=== PATIENT | female | born 1960 | race African-American/Black ===

== ENCOUNTER 2022-04-29 07:44 | Emergency (ER) | payer MEDICAID, OTHER ==
[~2022-04-29] VITALS: Ht 162.6 cm; Wt 67.0 kg
[~2022-04-29 07:44] MED LIST: ACET-3161 GT; LISI-186 PO; MOTRIN; NEOM10DR11 OT
[2022-04-29 08:00] VITALS: BP 191/67
[2022-04-29] MEDS ORDERED: MECLIZINE 25MG TABLET PO ONE (10:30)
[2022-04-29 10:57] LABS: BASOPHILS % 0.8 % (0.0-2.0); EOSINOPHILS % 0.7 % (0.0-5.0); HEMATOCRIT. 37.5 % (36.0-48.0); HEMOGLOBIN. 12.1 g/dL (12.0-16.0); MEAN CORPUSCULAR HEMOGLOBIN 26.9 pg (28.0-32.0); MEAN CORPUSCULAR VOLUME 83.3 fL (81.0-99.0); MONOCYTES % 5.2 % (2.0-8.0); NEUTROPHILS % 60.3 % (40.0-76.0); PLATELET 366 x1000/uL (130-400); RED BLOOD CELL COUNT 4.49 mill/uL (4.2-5.4); RED CELL DISTRIBUTION WIDTH 14.5 % (11.6-14.6)
[2022-04-29 11:00] LABS: CHLORIDE 111 mEq/L (98-107)
[2022-04-29] MEDS ORDERED: MECL-159 MT (12:12)
== END 2022-04-29 12:46 | disposition home or self-care (01) ==
LOC: ER 08:39
DX: H81.13 Benign paroxysmal vertigo, bilateral (principal); R94.31 Abnormal electrocardiogram [ECG] [EKG]
CPT/HCPCS: 36415; 70450; 71045; 80053; 84484; 85025; 93005; 99285; J8597

== ENCOUNTER 2023-09-29 19:19 | Emergency (ER) | payer OTHER ==
[~2023-09-29] VITALS: Ht 170.2 cm; Wt 73.0 kg
[~2023-09-29 19:19] MED LIST changes: +MECL-299 MT
[2023-09-29 19:27] VITALS: O2SAT 100
[2023-09-29 20:17] LABS: BASOPHILS % 1.1 % (0.0-2.0); EOSINOPHILS % 1.3 % (0.0-5.0); HEMOGLOBIN. 11.3 g/dL (12.0-16.0); MEAN CORPUSCULAR HEMOGLOBIN 27.5 pg (28.0-32.0); MEAN CORPUSCULAR HGB CONC 32.4 g/dL (31.0-37.0); MEAN CORPUSCULAR VOLUME 84.9 fL (81.0-99.0); MONOCYTES % 6.1 % (2.0-8.0); NEUTROPHILS % 66.5 % (40.0-76.0); PLATELET 284 x1000/uL (130-400); RED BLOOD CELL COUNT 4.13 mill/uL (4.2-5.4); RED CELL DISTRIBUTION WIDTH 14.4 % (11.6-14.6)
[2023-09-29 20:19] LABS: DIFFERENTIAL COMMENT 1
[2023-09-29 20:20] LABS: ADD RBC MORPHOLOGY YES
[2023-09-29 20:24] LABS: CHLORIDE 108 mEq/L (98-107); POTASSIUM 3.5 mEq/L (3.5-5.1); SODIUM 138 mEq/L (136-145)
[2023-09-29 20:25] LABS: CARBON DIOXIDE 23 mEq/L (21-32)
[2023-09-29 20:26] LABS: CALCIUM 9.8 mg/dL (8.7-10.4)
[2023-09-29 20:31] LABS: CREATININE 0.8 mg/dL (0.6-1.0); GLUCOSE 125 mg/dL (70-105); UREA NITROGEN BLOOD 14 mg/dL (9-23)
[2023-09-29 20:33] LABS: TROPONIN I HIGH SENSITIVITY 23 ng/L (3.0-34)
[2023-09-29 20:34] LABS: PLATELET ESTIMATE NORMAL
[2023-09-29 22:32] VITALS: BP 139/70; PULSE 70; RESP 12; TEMP 97.4
== END 2023-09-29 22:33 | disposition home or self-care (01) ==
LOC: ER 19:19
DX: R00.2 Palpitations (principal); F43.21 Adjustment disorder with depressed mood; I10 Essential (primary) hypertension; Z98.890 Other specified postprocedural states
CPT/HCPCS: 80048; 83880; 85025; 84484; 36415; 71045; 93005; 99285; Z7610 ×2